=== PATIENT | male | born 1995 | race Caucasian/White ===

== ENCOUNTER 2017-11-17 02:14 | Emergency (ER) | payer SELFPAY ==
[2017-11-17] MEDS ORDERED: Triamcinolone Acetonide 40 MG/ML 1 ML MDV ONE (02:47)
[2017-11-17] MEDS ORDERED: Triamcinolone Acetonide 40 MG/ML 1 ML MDV IM ONE (05:45)
== END 2017-11-17 03:00 | disposition home or self-care (01) ==
LOC: JP.ED 02:25
DX: L23.7 Allergic contact dermatitis due to plants, except food (principal)
CPT/HCPCS: 96372; 99283; J3301

== ENCOUNTER 2021-09-29 10:35 | Emergency (ER) | payer BC ==
[2021-09-29] MEDS ORDERED: Proparacaine 0.5% Ophth Soln 15 ML Bottle EYEBOTH STA (10:58)
[2021-09-29] MEDS ORDERED: Dexamethasone/Tobramycin 0.1-0.3% Ophth Oint 3.5 GM Tube EYERT SCH (12:00)
== END 2021-09-29 12:10 | disposition home or self-care (01) ==
LOC: JP.ED 10:35
DX: S05.01XA Injury of conjunctiva and corneal abrasion without foreign body, right eye, initial encounter (principal); W22.09XA Striking against other stationary object, initial encounter
CPT/HCPCS: 65220; 99283-25; A9270-GY

== ENCOUNTER 2024-12-11 15:42 | Emergency (ER) | payer BC, OTHER ==
[2024-12-11] MEDS: Lidocaine/Epineph/Tetracaine 3 ML Syringe TOP ONE (16:13)
== END 2024-12-11 19:02 | disposition home or self-care (01) ==
LOC: JP.ED 15:42
DX: S01.511A Laceration without foreign body of lip, initial encounter (principal); W22.8XXA Striking against or struck by other objects, initial encounter
CPT/HCPCS: 12011; 99282; 99283; A9270-GY